=== PATIENT | male | born 1980 | race Native Hawaiian/Other Pacific Islander ===

== ENCOUNTER 2020-06-04 10:19 | Emergency (ER) | payer MEDICARE ==
[~2020-06-04] VITALS: Ht 193 cm; Wt 118.2 kg
[2020-06-04 10:26] VITALS: TEMP 95
[2020-06-04 10:55] LABS: BASO % 0.5 % (0.0-2.0); EOS # 0.3 (0.0-0.7); EOS % 3.5 % (0-4.0); GRAN # 5.4 (1.4-6.5); GRAN % 62.9 % (42.2-75.2); HEMATOCRIT 51.5 % (42.0-52.0); HEMOGLOBIN 16.7 g/dl (13.5-18.0); LYMPH % 23.8 % (20.0-51.0); MEAN CELL VOLUME 92 fl (80.0-100.0); MEAN CORPUSCULAR HEMOGLOBIN 30 pg (27.0-31.0); MEAN CORPUSCULAR HGB CONC 32 g/dl (33.0-37.0); MEAN PLATELET VOLUME 9.8 fl (7.4-10.4); MONO # 0.8 (0.1-0.6); MONO % 8.9 % (1.7-9.3); PLATELET COUNT 227 K/mm3 (130-400); RED BLOOD COUNT 5.58 M/mm3 (4.20-5.60)
[2020-06-04 11:02] LABS: INR 1.3 (0.8-3.0)
[2020-06-04 11:10] LABS: ALBUMIN 3.7 gm/dL (3.5-5.0); BILIRUBIN,TOTAL 1.4 mg/dL (0.0-1.0); CALCIUM 8.8 mg/dL (8.4-10.2); CREATININE, serum 0.75 (0.66-1.25); POTASSIUM 3.7 mmol/L (3.4-5.0); TOTAL PROTEIN 7.2 gm/dL (6.4-8.2)
[2020-06-04 11:21] LABS: TROPONIN-I 0.018 ng/mL (0.000-0.035)
[2020-06-04] MEDS ORDERED: ZESTRIL40 MG (11:34)
[2020-06-04] MEDS ORDERED: KLOR-CON20 MEQ PO (12:33)
[2020-06-04] MEDS ORDERED: TOPROL XL 25MG25 MG PO (12:33)
[2020-06-04] MEDS ORDERED: LASIX 40MG TABL40 MG PO (12:33)
[2020-06-04 12:48] VITALS: BP 149/112; PULSE 117
== END 2020-06-04 12:50 | disposition home or self-care (01) ==
LOC: COL.ER 10:19
PROVIDERS: Emergency Medicine
DX: I11.0 Hypertensive heart disease with heart failure (principal); R79.1 Abnormal coagulation profile
CPT/HCPCS: J1940